=== PATIENT | male | born 1955 ===

== ENCOUNTER 2021-08-20 05:31 | Day surgery (SDC) | payer OTHER ==
[2021-08-18 11:55] VITALS: BP 131/75
[2021-08-18 12:24] LABS: BASOPHILS % (AUTO) 0.6 % (0.0-5.0); EOSINOPHILS % (AUTO) 3.5 % (0.0-8.0); HEMATOCRIT 44.1 % (42-54); LYMPHOCYTES % (AUTO) 25.6 % (21.0-51.0); MEAN CORPUSCULAR HEMOGLOBIN 28.9 pg (27.0-33.0); MEAN CORPUSCULAR HGB CONC 31.7 g/dL (32.0-36.0); MEAN CORPUSCULAR VOLUME 90.9 fL (79-99); MONOCYTES % (AUTO) 6.8 % (3.0-13.0); NEUTROPHILS % (AUTO) 63.2 % (40.0-77.0); PLATELET COUNT (AUTO) 213 K/uL (130-400); RED BLOOD CELL COUNT(AUTO) 4.85 MIL/uL (4.50-6.20); RED CELL DISTRIBUTION WIDTH 13.2 % (11.0-15.5); WHITE BLOOD COUNT (AUTO) 7.1 K/uL (4.8-10.8)
[2021-08-18 12:31] LABS: CREATININE 0.8 mg/dL (0.5-1.5); POTASSIUM 4.6 mmol/L (3.5-5.1)
[2021-08-18 12:40] LABS: INR 0.94 (0.85-1.15); PROTHROMBIN TIME 10.3 SEC (9.6-11.6)
[2021-08-18 12:41] LABS: APPEARANCE,URINE Clear (CLEAR); BILIRUBIN,URINE Negative (NEGATIVE); COLOR,URINE Yellow (YELLOW); GLUCOSE, URINE (UA) Negative (NEGATIVE); KETONES,URINE Negative (NEGATIVE); LEUKOCYTE ESTERASE ,URINE Negative (NEGATIVE); NITRATE,URINE Negative (NEGATIVE); OCCULT BLOOD,URINE Negative (NEGATIVE); PH,URINE 5.5 (5.0-8.0); PROTEIN,URINE Negative (NEGATIVE); UROBILINOGEN,URINE 0.2 mg/dL (0.2-1.0)
[2021-08-18 12:41] LABS: PARTIAL THROMBOPLASTIN TIME 30.1 SEC (26.3-35.5)
[2021-08-18 12:58] LABS: B-TYPE NATRIURETIC PEPTIDE 18 pg/mL (0-100)
[~2021-08-20] VITALS: Ht 172.7 cm; Wt 110.7 kg
[2021-08-20] VITALS (10 sets, daily range): BP systolic 102–153; BP diastolic 53–78
[~2021-08-20 05:31] MED LIST: AMLO-258 PO; ASPI-1443 PO; FLUT220HFA IH; OLME40TA18 PO; ROSU10TA28 PO
[2021-08-20] MEDS ORDERED: 0.9%NACL 1000ML 1,000 ML IV ONE (06:04)
[2021-08-20] MEDS ORDERED: LIDOCAINE HCL 1% 20 ML VIAL ONE (07:11)
[2021-08-20] MEDS ORDERED: IOHEXOL 350 MG/ML 100ML INFUS..BTL IV ONE (07:12)
[2021-08-20] MEDS ORDERED: MIDAZOLAM HCL 1 MG/ML 2ML VIAL ONE (07:12)
[2021-08-20] MEDS ORDERED: IOHEXOL-350 50ML VIAL IV ONE (07:12)
[2021-08-20] MEDS ORDERED: NITROGLYCERIN 50MG VIAL ONE (07:12)
[2021-08-20] MEDS ORDERED: FENTANYL CITRATE PF 50 MCG/1 ML 2ML VIAL ONE ×2 (07:12→08:41)
[2021-08-20] MEDS ORDERED: HEPARIN 10,000 UNIT/10ML (1,000 UNIT/ML) VIAL ONE (07:12)
[2021-08-20] MEDS ORDERED: BIVALIRUDIN 250 MG/VIAL IV ONE (07:13)
[2021-08-20] MEDS ORDERED: 0.9%NACL 1000ML 1,000 ML IV SCH (09:00)
[2021-08-20 11:25] LABS: CHOLESTEROL 110 mg/dL (<200); HDL CHOLESTEROL 41 mg/dL (29-71); LDL DIRECT 62 mg/dL (0-99); TRIGLYCERIDES 62 mg/dL (30-200)
== END 2021-08-20 12:59 | disposition home or self-care (01) ==
LOC: DAH 05:31
PROVIDERS: ATTEND Internal Medicine Cardiovascular Disease
DX: I25.119 Atherosclerotic heart disease of native coronary artery with unspecified angina pectoris (principal); I10 Essential (primary) hypertension; E78.5 Hyperlipidemia, unspecified; J45.909 Unspecified asthma, uncomplicated; E66.8 Other obesity; I45.10 Unspecified right bundle-branch block; E78.00 Pure hypercholesterolemia, unspecified; Z68.37 Body mass index [BMI] 37.0-37.9, adult; Z90.49 Acquired absence of other specified parts of digestive tract; Z79.01 Long term (current) use of anticoagulants; Z79.899 Other long term (current) drug therapy; Z79.82 Long term (current) use of aspirin
CPT/HCPCS: 36415 ×2; 71045; 80048; 80061; 81003; 83880; 85025; 85610; 85730; 93005; 93458; 93571; C1760; C1769; C1887; C1894 ×2; J1644 ×2; J2250; J3010 ×2; J3490; J7030; Q9965 ×2; Q9967 ×2; 99156; 99157; J0583

== ENCOUNTER → 2024-07-24 | Outpatient (CLI) | payer OTHER ==
[~2024-07-24] MED LIST changes: +LAbetaLOL 20MG SYG IV ONE; -ROSU10TA28 PO; +ROSU10TA72 PO
--- NOTE | 2024-07-24 15:58 | HMCSR ---
APPROVED REPORT Height: 5 ft 8in Weight: 225 lbs TEST INDICATIONS CAD The imaging protocol used to acquire images was Rest Tc-99m/stress Tc-99m 1 day Consent: The procedure was explained and understood by the patient. Informerd consent was witnessed RON CrookMT First, low dose rest was performed then high dose stress. RESTING DATA: The resting ekg shows: NSR, RBBB Rest SPECT myocardial perfusion imaging was performed in supine position minutes following the intra venous injection of 10 mCi of Tc-99 Sestamibi. Time of rest injection: Date: 07/24/2024 Time of rest imaging: Date: 07/24/2024 EXERCISE STRESS: At peak stress, the patient was injected intravenously with 28mCi of Tc-99 Sestamibi. Time of stress injection: Date: 07/24/2024 Time of stress imaging: Date: 07/24/2024 Heart Rate at time of stress injection: 129 bpm. Patient continued to exercise for 1 minute(s). Gated Stress SPECT was performed 60 minutes after stress injection. The images were gated to evaluate regional wall motion and calculate left ventricular ejection fracti on. STRESS DETAILS Reason for Termination: Reached target heart rate Stress Symptoms: Dyspnea, NO Chest Pain Max HR Achieved: 140 bpm % of APMHR Achieved: 108 Max Blood Pressure: 215/79 mmHg Exercise duration: 6:17 min Exercise capacity: 7.47METs Highest Stage Achieved: Stage 3: 3.4 mph at 14% grade. Stress ECG: Tachycardia, RBBB Arrhythmia: No. ST Change: Yes. Downsloping ST depression. Maximum ST Depression: 3 mm Angina Score during exercise: None Shepard Treadmill Score: 6.0 Overall Exercise Capacity: Poor Study quality was fair. Artifact: motion artifact, diaphragmatic artifact LEFT VENTRICLE Size: The left ventricular size is normal. Systolic Function:The left ventricular systolic function is normal. Wall Motion: No regional wall motion abnormalities noted. The left ventricular ejection fraction was calculated to be 74%.TID = . LV PERFUSION The rest and stress images show normal perfusion. No reversilble ischemia or areas of infarct were se en. No obvious TID. Conclusion Poor exercise tolerance (exercise duration 6 minutes, 30 sec) Exercise stress ECG is positive for reversible ischemia. Patient developed T-wave inversion, 44 seco nds into stress. He then had downsloping 3mm ST depression, in V2 and V3 during peak exercise, that lasted 2 min into the recovery phase. Shepard treadmill score: -8.5, which correlates with a moderate cardiovascular risk Angina: None Rest and stress images demonstrate normal perfusion. No reversible ischemia. No obvious TID. The left ventricular size is normal. No regional wall motion abnormalities noted. The left ventricula r systolic function is normal. Post-stress LVEF was calculated to be 74%. The above-mentioned findings, in combination indicate a moderate to high-risk for cardiovascular even ts. Clinical correlation is advised.
== END | disposition home or self-care (01) ==
LOC: SHCH 07-10 07:50
PROVIDERS: ATTEND Internal Medicine Cardiovascular Disease
DX: I25.9 Chronic ischemic heart disease, unspecified (principal); R00.0 Tachycardia, unspecified; I45.10 Unspecified right bundle-branch block; I25.10 Atherosclerotic heart disease of native coronary artery without angina pectoris; R06.00 Dyspnea, unspecified
CPT/HCPCS: 78452; 93017; A9500 ×2